=== PATIENT | male | born 1970 ===

== ENCOUNTER 2019-04-07 13:04 | Emergency (ER) | payer SELFPAY ==
[2019-04-07 13:39] VITALS: BP 145/72
--- NOTE | 2019-04-07 14:16 | UC ---
Skin Complaint HPI - HPI Summary HPI Summary: Patient is a 48 year old male , who present today to the urgent care with for left eye redness that he noticed today morning He reports that this is a possible he might have a possible possible insect bite to left upper leg that he noticed this morning. Played golf yesterday for 6 hours, doesn't remember feeling a sting/bite. He denies any tick bite. There is no discharge but is tender to palpate in the left upper thigh. Denies any other symptoms, has had no fever or chills. He lives in [place] and has been here visiting his parent's for about a week and will be leaving tomorrow. - History of Current Complaint Chief Complaint: UCSkin Time Seen by Provider: 04/07/19 13:58 Stated Complaint: L LEG PAIN Hx Obtained From: Patient Pain Intensity: 0 - Allergy/Home Medications Allergies/Adverse Reactions: Allergies Allergy/AdvReac Type Severity Reaction Status Date / Time No Known Allergies Allergy Verified 04/07/19 13:39 PMH/Surg Hx/FS Hx/Imm Hx - Additional Past Medical History Additional PMH: Past Medical History : None Past Surgical History: Right knee surgery Family History : non contributory Social History : Occasional alcohol, non smoker, no drug use. He lives in [place] Previously Healthy: Yes - Surgical History Surgical History: Yes Surgery Procedure, Year, and Place: 5 Right knee - Family History Known Family History: Positive: Non-Contributory - Social History Alcohol Use: Occasionally Substance Use Type: None Smoking Status (MU): Never Smoked Tobacco Review of Systems All Other Systems Reviewed And Are Negative: Yes Constitutional: Positive: Negative Skin: Positive: Rash - Left upper thigh Eyes: Positive: Negative ENT: Positive: Negative Respiratory: Positive: Negative Cardiovascular: Positive: Negative Gastrointestinal: Positive: Negative Genitourinary: Positive: Negative Motor: Positive: Negative Neurovascular: Positive: Negative Musculoskeletal: Positive: Negative Neurological: Positive: Negative Psychological: Positive: Negative Is Patient Immunocompromised?: No Physical Exam - Summary Physical Exam Summary: Vital Signs Reviewed: Yes A+Ox3, no distress Eyes: Conjunctiva Clear ENT: Hearing grossly normal neck: supple Respiratory: Positive: No respiratory distress, No accessory muscle use Cardiovascular: skin color reflect adequate perfusion Musculoskeletal Exam: FREEMAN x 4 without difficulty Neurological: Positive: Alert, ambulatory without difficulty Psychological: Positive: Normal Response To Family Skin: Area of erythema which is spreading zone and some central clearing is noted in the left upper thigh posteriorly measuring 7 inch x inch in maximum dimension, no drainage is noted. There is some central clearing in that area but insect bite site was identified. There is tenderness to palpation Triage Information Reviewed: Yes Vital Signs: Initial Vital Signs Temp 98.4 F 04/07/19 13:36 Pulse 83 04/07/19 13:36 Resp 12 04/07/19 13:36 BP 145/72 04/07/19 13:36 Pulse Ox 97 04/07/19 13:36 Vital Signs Reviewed: Yes Course/Dx - Course Course Of Treatment: During the visit today, we discussed the findings. Suspect insect bite with cellulitis versus Lyme disease but he does not recall any tick bite or insect bite either. I marked the area with a surgical pen so that he can monitor for any worsening.. Plan to treat with doxycycline which would cover for both. He lives in [place] and will follow up with his primary care doctor within a week. Patient expressed understanding . - Diagnoses Provider Diagnosis: Cellulitis Discharge ED - Sign-Out/Discharge Documenting (check all that apply): Patient Departure All imaging exams completed and their final reports reviewed: No Studies - Discharge Plan Condition: Stable Disposition: HOME Prescriptions: DOXYcycline CAP(*) [DOXYcycline 100MG CAP(*)] 100 mg PO BID 14 Days #28 cap Patient Education Materials: Lyme Disease (ED), Cellulitis (ED) Referrals: No Primary Care Phys,NOPCP [Primary Care Provider] - Additional Instructions: Please start taking the medication as prescribed to the pharmacy . The area of redness has been marked. Please monitor for and is spreading out of the marked sone over the next 2-3 days. If it does so immediately follow up with your primary care doctor in [place]. Follow up with your primary care doctor in 1 week. Patients blood pressure slightly high in Urgent care today , plan follow up with PCP for better control Return to Urgent care / ER if symptoms get worse. . - Billing Disposition and Condition Condition: STABLE Disposition: Home
== END 2019-04-07 14:33 | disposition home or self-care (01) ==
LOC: UCEAST 13:04
DX: L03.116 Cellulitis of left lower limb (principal)
CPT/HCPCS: 99202; G0463